=== PATIENT | male | born 1980 | race Caucasian/White ===

== ENCOUNTER → 2017-04-07 | Outpatient (CLI) | payer OTHER ==
--- NOTE | 2017-04-07 13:18 | DIAGNOSTIC IMAGING REPORT ---
MRI OF THE CERVICAL SPINE WITHOUT IV CONTRAST CLINICAL HISTORY: Cervicalgia. COMPARISON STUDY: No priors. TECHNIQUE: MRI of the cervical spine is performed utilizing various T1 and T2-weighted sequences in the axial and sagittal planes. IV contrast was not administered for this examination. FINDINGS: Cervical spine: Vertebral body height and alignment are maintained throughout the cervical spine. There is straightening of the cervical lordosis with mild reversal centered at C5-C6. The atlantodental articulation is preserved. The spinous processes appear intact. No destructive osseous lesion is seen. Tiny anterior osteophytes are seen in the lower cervical region. Minimal endplate edema is identified at C6-C7. Intervertebral discs: Mild degenerative disc desiccation is identified. The disc spaces are preserved. Spinal cord: The cervical spinal cord is normal in morphology and signal intensity. C2-C3: Unremarkable. C3-C4: Unremarkable. C4-C5: Mild facet arthropathy is of no consequence. The central canal and neural foramina are widely patent. C5-C6: Facet arthropathy is of no consequence. The central canal and neural foramina are patent. Mild uncovertebral arthropathy is seen on the right. C6-C7: Uncovertebral and facet arthropathy cause mild bilateral neural foraminal stenosis, right greater than left. C7-T1: Unremarkable. Soft tissues: The prevertebral and paraspinous soft tissues are within normal limits. Brain parenchyma: Partially imaged brain parenchyma the skull base is normal in appearance. IMPRESSION: 1. There is no disc herniation or central canal stenosis identified involving the cervical spine. 2. Mild spondylotic change as above, greatest at C6-C7. 3. The cervical spinal cord is normal in morphology and signal intensity. Electronically signed by: Wei Mcleod M.D. 04/07/2017 1:17 PM Dictated Date/Time: 04/07/2017 12:37 PM
== END | disposition home or self-care (01) ==
LOC: C.MRI 07:46
PROVIDERS: ATTEND Family Medicine
DX: M54.2 Cervicalgia (principal)